=== PATIENT | female | born 1995 | race African-American/Black ===

== ENCOUNTER 2021-08-27 12:31 | Outpatient (CLI) | payer MEDICAID, SELFPAY | END 2021-08-27 12:32 | disposition home or self-care (01) | LOC: ANHLAB 12:41 | PROVIDERS: PCP Obstetrics & Gynecology Gynecology; Visit Provider Obstetrics & Gynecology Gynecology | DX: O26.851 Spotting complicating pregnancy, first trimester (principal); Z3A.00 Weeks of gestation of pregnancy not specified | CPT/HCPCS: 36415; 84702; 86850; 86900; 86901 ==

== ENCOUNTER 2023-09-03 13:02 | Outpatient (CLI) | payer OTHER, SELFPAY ==
--- NOTE | ~2023-09-03 | US_ITS ---
Pelvic ultrasound. Clinical History: First trimester , establish dates, history of spontaneous Technique: Realtime transabdominal and transvaginal scanning of the pelvis was performed. Color flow Doppler and Doppler spectral analysis were performed. Findings: The uterus is anteverted, and contains an intrauterine gestation. [place]-rump length of 8 mm corresponds to an estimated gestational age of 6 weeks 5 days.. Heart rate is 145 bpm. The right ovary measures 3.9 x 4.6 x 2.9 cm. Right ovarian cyst measures up to 4.2 cm in diameter. The left ovary measures 2.4 x 2.3 x 1.9 cm. No significant left ovarian or adnexal mass is seen. There is no evidence of free fluid in the cul de sac. Impression: Live intrauterine gestation with estimated gestational age of 6 weeks 5 days. heart rate is 145 bpm. Sonographic MARIYA is 04/19/2024. Reviewed, dictated and finalized at location . AL COORDINATOR Impression: Live intrauterine gestation with estimated gestational age of 6 weeks 5 days. F etal heart rate is 145 bpm. Sonographic MARIYA is 04/19/2024.
== END 2023-09-03 13:03 | disposition home or self-care (01) ==
LOC: CHSIMG 13:06
PROVIDERS: PCP Hospitalist; Visit Provider Obstetrics & Gynecology Gynecology
DX: O26.21 Pregnancy care for patient with recurrent pregnancy loss, first trimester (principal); Z3A.01 Less than 8 weeks gestation of pregnancy
CPT/HCPCS: 76801

== ENCOUNTER 2023-10-09 14:14 | Outpatient (RCR) | payer OTHER, MEDICAID, SELFPAY ==
[2023-10-09] MEDS: RHO(D) IMMUNE GLOBULIN 300 MCG/2 ML SYRINGE IM (17:45)
== END 2024-01-07 23:59 | disposition home or self-care (01) ==
LOC: ANHLAB 14:14
PROVIDERS: PCP Hospitalist; Visit Provider Obstetrics & Gynecology Gynecology
DX: O26.851 Spotting complicating pregnancy, first trimester (principal); Z29.13 Encounter for prophylactic Rho(D) immune globulin; O36.0190 Maternal care for anti-D [Rh] antibodies, unspecified trimester, not applicable or unspecified; Z3A.00 Weeks of gestation of pregnancy not specified
CPT/HCPCS: 36415; 85461; 86850; 86900; 86901; 90384; 96372; J2790

== ENCOUNTER 2023-10-13 14:15 | Outpatient (CLI) | payer OTHER, MEDICAID, SELFPAY ==
[2023-10-13 14:49] LABS: Basophils Percent Auto 0.2 % (0.2-1.2); Eosinophils Percent Auto 0.6 % (0-4.4); Hematocrit 34.2 % (37.0-47.0); Hemoglobin 10.8 g/dL (12.0-15.0); Immature Granulocyte Absolute 0.01 K/mm3 (0.00-0.031); Immature Granulocyte Percent A 0.2 % (0-0.5); Lymphocytes Absolute Auto 2.11 K/mm3 (0.9-3.2); Lymphocytes Percent Auto 32.2 % (18.3-44.2); Mean Corpuscular HGB Conc 31.6 g/dl (32-36); Mean Corpuscular Hemoglobin 27.4 pg (26-34); Mean Corpuscular Volume 86.8 fl (80-100); Mean Platelet Volume 10.8 fl (7.4-10.4); Monocytes Absolute Auto 0.4 K/mm3 (0.1-0.6); Monocytes Percent Auto 6.6 % (2.6-8.5); Neutrophils Percent Auto 60.2 % (45.5-73.1); Platelet Count Result 295 k/mm3 (150-375); Red Blood Count 3.94 M/mm3 (4.2-5.4); Red Cell Distribution Width 12.6 % (11.5-14.5); White Blood Count 6.6 K/mm3 (4.5-10.0)
[2023-10-13 15:01] LABS: Hemoglobin A1C 5.6 % (<5.7)
[2023-10-13 15:40] LABS: HIV 1/2 Ab P24 Ag Result Negative (Negative)
[2023-10-13 16:10] LABS: Hepatitis B Surface Antigen Negative (Negative); Rubella IgG Antibody 26.8 IU/ML
[2023-10-13 16:22] LABS: Hepatitis C Virus Antibody Negative (Negative)
[2023-10-14 10:10] LABS: Vitamin D 25 Hydroxy 18.8 ng/mL
[2023-10-14 13:59] LABS: Rapid Plasma Reagin Non-Reactive (NonReactive)
== END 2023-10-13 14:16 | disposition home or self-care (01) ==
LOC: ANHLAB 14:20
PROVIDERS: PCP Hospitalist; Visit Provider Advanced Practice Midwife
DX: Z13.29 Encounter for screening for other suspected endocrine disorder (principal)
CPT/HCPCS: 36415; 82306; 82728; 83036; 84443; 85025; 86592; 86703; 86762; 86803; 86850; 86880; 86900; 86901; 86902; 87340; G0432

== ENCOUNTER 2023-10-20 09:28 | Outpatient (CLI) | payer OTHER, MEDICAID, SELFPAY ==
[2023-10-20 10:14] LABS: Hematocrit 33.9 % (37.0-47.0); Mean Corpuscular HGB Conc 32.4 g/dl (32-36); Mean Corpuscular Hemoglobin 27.8 pg (26-34); Mean Corpuscular Volume 85.6 fl (80-100); Mean Platelet Volume 10.7 fl (7.4-10.4); Platelet Count Result 288 k/mm3 (150-375); Red Blood Count 3.96 M/mm3 (4.2-5.4); Red Cell Distribution Width 12.7 % (11.5-14.5); White Blood Count 6.7 K/mm3 (4.5-10.0)
[2023-10-20 10:26] LABS: Glucose Fasting 88 mg/dL
[2023-10-20 11:30] LABS: Glucose 1 Hour 135 mg/dL
[2023-10-20 12:17] LABS: Glucose 2 Hour 99 mg/dL
== END 2023-10-20 09:29 | disposition home or self-care (01) ==
LOC: ANHLAB 09:31
PROVIDERS: PCP Hospitalist; Visit Provider Obstetrics & Gynecology Gynecology
DX: O99.810 Abnormal glucose complicating pregnancy (principal); D50.8 Other iron deficiency anemias
CPT/HCPCS: 36415; 82951; 85027

== ENCOUNTER 2023-10-22 10:54 | Outpatient (CLI) | payer OTHER, MEDICAID, SELFPAY ==
--- NOTE | ~2023-10-22 | US_ITS ---
EXAMINATION: US OB follow up DATE: 10/22/2023 12:03 INDICATION: Spotting during first trimester TECHNIQUE: Real-time ultrasound of the pelvis was performed. The interpreting radiologist was not pre sent for the study. COMPARISON: None. FINDINGS: There is a single living fetus in breech presentation. The placenta is anterior. card iac activity and movement are noted. heart rate is 155 beats per minute (bpm). A 1.6 cm f ibroid is noted in the anterior uterine body. The following biometric data were obtained: Biparietal diameter (BPD): 2.8 cm; head circumference (HC): 10.3 cm; abdominal circumference (AC): 8. 5 cm; femur length (FL): 1.5 cm. These measurements are concordant. Estimated weight is 101 g +/- 15 g, which correlates with the 56th percentile when 04/16/2024 is used as estimated date of delivery. As single measurements, these parameters are each equal to the following estimated gestational ages w ith ranges of +/- 2 standard deviations: BPD: 15 weeks 0 days +/- 1 weeks 1 days. HC: 14 weeks 6 days +/- 1 weeks 1 days. AC: 14 weeks 6 days +/- 1 weeks 5 days. FL: 14 weeks 2 days +/- 1 weeks 3 days. estimated gestational age based solely on measurements from this exam is 14 weeks 5 days +/- 1 weeks 0 days. IMPRESSION: 1. Single living fetus in reach presentation. 2. Estimated weight is 101 g +/- 15 g, which correlates with the 56th percentile when 04/16/2024 is used as estimated date of delivery. Reviewed, dictated and finalized at location F. RAM ASSISTANT IMPRESSION: 1. Single living fetus in reach presentation. 2. Estimated weight is 101 g +/- 15 g, which correlates with the 56th per centile when 04/16/2024 is used as estimated date of delivery.
== END 2023-10-22 10:55 | disposition home or self-care (01) ==
PROVIDERS: PCP Hospitalist; Visit Provider Obstetrics & Gynecology Gynecology
DX: O26.851 Spotting complicating pregnancy, first trimester (principal)
CPT/HCPCS: 76816

== ENCOUNTER 2023-11-18 17:23 | Outpatient (CLI) | payer OTHER, MEDICAID, SELFPAY ==
[2023-11-18 17:48] VITALS: BP 118/72; PULSE 98; RESP 18; TEMP 36.6
--- NOTE | 2023-11-18 18:10 | PC.NURSE ---
Shadi Morales [facility] informed of pt's arrival at 18 wks with c/o increased vaginal wetness since 1330 today. Light yellow creamy vaginal discharge was noted. Pt denies vaginal itching or irritation. ROM plus was negative. FHT's 144. OK to discharge to home.
== END 2023-11-18 18:15 | disposition home or self-care (01) ==
LOC: ANHOBOP 17:30 → ANHOBPP 17:30
PROVIDERS: PCP Hospitalist; Visit Provider Advanced Practice Midwife
DX: Z34.90 Encounter for supervision of normal pregnancy, unspecified, unspecified trimester (principal); Z3A.00 Weeks of gestation of pregnancy not specified
CPT/HCPCS: 84112; 99199